=== PATIENT | male | born 1990 | race Caucasian/White ===

== ENCOUNTER 2017-03-28 15:50 | Emergency (ER) | payer OTHER ==
[2017-03-28 15:57] VITALS: RESP 18
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
--- NOTE | 2017-03-28 16:19 | XR ---
Left hand HISTORY: Laceration 3 views of the left hand Bone mineralization, joint spaces and alignment are maintained. Soft tissue defect compatible with la ceration medial aspect of the hand. Punctate densities indeterminate on the frontal view just medial to the distal aspect of the proximal phalanx of the fifth digit and medial to the distal fifth metaca rpal. No fracture or dislocation. IMPRESSION: Findings compatible with patient's history of laceration. Difficult to exclude punctate f oreign body.
[2017-03-28 17:08] VITALS: BP 122/74; PULSE 88; TEMP 98.2
== END 2017-03-28 17:08 | disposition home or self-care (01) ==
LOC: EC 15:50
DX: S61.412A Laceration without foreign body of left hand, initial encounter (principal); F17.200 Nicotine dependence, unspecified, uncomplicated; Z88.0 Allergy status to penicillin; Z91.030 Bee allergy status; W25.XXXA Contact with sharp glass, initial encounter; Y93.89 Activity, other specified; Y99.0 Civilian activity done for income or pay
CPT/HCPCS: 12002; 99283